=== PATIENT | female | born 1960 | race Caucasian/White ===

== ENCOUNTER 2021-09-07 23:26 | Emergency (ER) | payer OTHER ==
[2021-09-07] MEDS ORDERED: Bacitracin Oint 1 GM U/D Packet TOP ONE (23:45)
--- NOTE | 2021-09-08 00:17 | EDM.PDOC ---
ED HPI GENERAL MEDICAL PROBLEM - General Chief Complaint: Bite:Animal, Insect Stated Complaint: BITE Time Seen by Provider: 09/07/21 23:45 Source of Information: Reports: Patient History Limitations: Reports: No Limitations - History of Present Illness INITIAL COMMENTS - FREE TEXT/NARRATIVE: 60-year-old female was bitten in the right lower leg by her own dog who is fully vaccinated but is having some behavioral issues. She has a 4 cm, curved fairly deep laceration on the inner aspect of the right lower leg on the calf. She also has an adjacent small puncture wound and a few superficial abrasions. She is current on her tetanus, the injury happened less than 2 hours ago. No other complaints. 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) - Related Data Allergies Allergy/AdvReac Type Severity Reaction Status Date / Time Sulfa (Sulfonamide Allergy Fatigue Verified 09/07/21 23:50 Antibiotics) cat dander AdvReac Itching Verified 09/07/21 23:50 Woods And Derivatives AdvReac Rash Verified 09/07/21 23:50 latex AdvReac Rash Verified 09/07/21 23:50 Penicillins AdvReac Other Verified 09/07/21 23:50 Home Meds: Home Meds Calcium Carbonate [Calcium] 1 tab PO ASDIRECTED 09/07/21 [History] Social & Family History - Tobacco Use Tobacco Use Status *Q: Former Tobacco User Used Tobacco, but Quit: Yes Month/Year Tobacco Last Used: 1999 - Caffeine Use Caffeine Use: Reports: Coffee, Tea - Alcohol Use Days Per Week of Alcohol Use: 7 Number of Drinks Per Day: 2 Total Drinks Per Week: 14 - Recreational Drug Use Recreational Drug Use: No ED ROS GENERAL - Review of Systems Review Of Systems: See Below Constitutional: Denies: Fever, Chills Respiratory: Reports: No Symptoms Cardiovascular: Reports: No Symptoms GI/Abdominal: Reports: No Symptoms Skin: Reports: Other (See HPI) Neurological: Denies: Paresthesia (No distal paresthesias) ED EXAM, ANIMAL BITE - Physical Exam Exam: See Below Exam Limited By: No Limitations General Appearance: Alert, Anxious Head: Atraumatic Respiratory/Chest: No Respiratory Distress Extremities: Other (Exam is otherwise limited to the right leg. On the inner aspect of the right calf, the patient has a 4 cm curved laceration deep into the subcutaneous tissue. There is an adjacent small puncture and abrasion) Neurological: Alert, Oriented Course - Vital Signs Last Recorded V/S: Last Vital Signs Temp 97.9 F 09/07/21 23:46 Pulse 141 H 09/07/21 23:46 Resp 16 09/07/21 23:46 BP 162/88 H 09/07/21 23:46 Pulse Ox 97 09/07/21 23:46 - Orders/Labs/Meds Meds: Medications Discontinued Medications Generic Name Dose Route Start Last Admin Trade Name Freq PRN Reason Stop Dose Admin Bacitracin 1 dose 09/07/21 23:45 Bacitracin Oint 1 Gm U/D Packet TOP 09/07/21 23:46 ONETIME ONE Lidocaine HCl 5 ml 09/07/21 23:45 Lidocaine 1% 5 Ml Sdv INJECT 09/07/21 23:46 ONETIME ONE - Re-Assessments/Exams Free Text/Narrative Re-Assessment/Exam: 09/08/21 00:18 The area was anesthetized with 1% lidocaine, washed thoroughly with copious saline then closed with four 4-0 Ethilon sutures in a vertical mattress pattern. Topical bacitracin and a pressure dressing was applied, the sutures can be removed in 8 or 9 days. She was also placed on clindamycin 150 mg 3 times a day starting with 300 mg this evening. She can recheck sooner if concerns of infection or not healing satisfactorily. Departure - Departure Time of Disposition: 00:40 Disposition: Home, Self-Care 01 Clinical Impression: Open wound of right lower leg due to dog bite Laceration of right lower leg Qualifiers: Encounter type: initial encounter Qualified Code(s): S81.811A - Laceration without foreign body, right lower leg, initial encounter - Discharge Information Instructions: Animal Bite, Adult Referrals: PCP,None [Ordering Only Provider] - Forms: ED Department Discharge Care Plan Goals: Keep wound covered and clean while healing, increase activity as tolerated and ibuprofen or naproxen will help with discomfort. Take 2 pills of antibiotic tonight, then start 1 pill 3 times a day tomorrow. Take an antibiotic till sutures are removed. Sutures can be removed in 8 or 9 days, on Wednesday the or Wednesday the . Recheck sooner if concerns of infection or not healing satisfactorily. Sepsis Event Note (ED) - Evaluation Sepsis Screening Result: No Definite Risk - Focused Exam Vital Signs: Vital Signs Temp Pulse Resp BP Pulse Ox 09/07/21 23:46 97.9 F 141 H 16 162/88 H 97
== END 2021-09-08 00:40 | disposition home or self-care (01) ==
LOC: JP.ED 23:26
DX: S81.851A Open bite, right lower leg, initial encounter (principal); Z88.0 Allergy status to penicillin; Z91.040 Latex allergy status; Z91.09 Other allergy status, other than to drugs and biological substances; Z88.2 Allergy status to sulfonamides; Z87.891 Personal history of nicotine dependence; W54.0XXA Bitten by dog, initial encounter
CPT/HCPCS: 12002; 99283-25